=== PATIENT | male | born 1940 | race Caucasian/White ===

== ENCOUNTER 2017-04-18 11:45 | Inpatient (IN) | payer MEDICARE ==
[~2017-04-18] VITALS: Ht 175.3 cm; Wt 72.4 kg
[~2017-04-18 11:45] MED LIST: AMIO200 PO; ASPI81 PO; ATOR80TA41 PO; DOCU1CAP39 PO; DORZ1SOL2 EACH EYE; LISI-357 PO; LUMI0.01 EACH EYE; METO25 PO; OCUVTAB PO; PLAV75TA PO; WALKER ROLLING
[2017-04-18 11:49] VITALS: BP 191/98; PULSE 85; RESP 20; TEMP 97.7; O2SAT 97
[2017-04-18] MEDS ORDERED: SODIUM CHLOR 0.9% 1000 ML INJ 1,000 ML IV ONE (11:53)
[2017-04-18] MEDS ORDERED: HYDROmorphone HCL PF 1 MG/ML VIAL IVS ONE ×2 (12:00→15:00)
[2017-04-18] MEDS ORDERED: SODIUM CHLORIDE 0.9% FLUSH 10 ML FLUSH IVF PRN (12:00)
[2017-04-18] MEDS ORDERED: ONDANSETRON HCL 4 MG/2 ML VIAL IVP ONE (12:00)
[2017-04-18 12:04] VITALS: O2SAT 100
--- NOTE | 2017-04-18 12:08 | PD ---
HPI Chief Complaint: GI Complaint Time Seen by Provider: 11:53 Travel History International Travel<30 days: No Contact w/Intl Traveler<30days: No Traveled to known affect area: No History of Present Illness HPI 76-year-old male with history coronary artery disease, peripheral vascular disease, early onset diabetes, who presents today with complaints of nausea vomiting and dizziness. The patient states he started sprinting lower abdominal pain earlier today. He states that when he was in the shower he started feeling worse and then had associated vomiting. The patient has no previous history of abdominal issues. He denies any chest pains, chest pressure. There are no urinary symptoms. The patient states that he feels the urge to have a bowel movement however the pain is not allowing him to have one. PFSH Past Medical History Hx Anticoagulant Therapy: Yes (PLAVIX) Arthritis: Yes Heart Rhythm Problems: Yes (NEW ONSET SINUS BRADYCARDIA) Cancer: No Cardiovascular Problems: Yes (HTN, CABG, STENTS, ) High Cholesterol: Yes Chest Pain: No COPD: Yes Diabetes: No Endocrine: No Gastrointestinal Disorders: Yes (GERD) GERD: Yes Glaucoma: Yes Genitourinary: No Hepatitis: No Hiatal Hernia: No Hypertension: Yes Immune Disorder: No Kidney Stones: Yes (COUPLE OF TIMES) Musculoskeletal: Yes (ARTHRITIS) Neurologic: Yes (HX BRAIN ANEURYSM (COILED)) Psychiatric: No Reproductive: Yes Respiratory: Yes (COPD) Integumentary: No Thyroid Disease: No Past Surgical History Abdominal Surgery: Yes (RIGHT ING. HERNIA REP.) AICD: No Arteriovenous Shunt: No Body Medical Devices: BRAIN COIL; STENTS IN LEFT GROIN Eye Surgery: Yes (CATARACTS bilateral;LASER R EYE) Insulin Pump: No Joint Replacement: Yes (LEFT HIP) Neurologic Surgery: Yes (ANEURYSM-COIL PLACED) Pacemaker: No Thoracic Surgery: Yes (Bypass) Tonsillectomy: Yes Other Surgery: Yes (left hip replaced, hernia) Social History Alcohol Use: No Tobacco Use: No (former smoker. quit 25yrs ago.) Substance Use: No Allergies-Medications (Allergen,Severity, Reaction): Coded Allergies: Clam (Verified Allergy, Severe, throat swells, 04/18/17) Reported Meds & Prescriptions Reported Meds & Active Scripts Active Metoprolol Tartrate 25 mg (Metoprolol Tartrate) 25 Mg Tab 25 Mg PO BID Colace 100 Mg Cap (Docusate Sodium) 100 Mg Cap 100 Mg PO DAILY Aspirin Low Strength (Aspirin) 81 Mg Chw 81 Mg PO DAILY Cordarone 200 Mg Tab (Amiodarone HCl) 200 Mg Tab 200 Mg PO Q12HR Walker Rolling (Device) Device 1 Ea Reported Ocuvite (Vit A/Vit C/Vit E/Selen/Cu/Zn/Lutei) Tab 1 Tab PO DAILY Lipitor 80 Mg Tab (Atorvastatin) 80 Mg Tab 80 Mg PO DAILY Lisinopril 5 mg (Lisinopril) 5 Mg Tab 1 Tab PO BID Lumigan (Bimatoprost) 0.01 % Silke 1 Drop EACH EYE HS Cosopt (Dorzolamide/Timolol) 5 Ml Soln 1 Drop EACH EYE BID Plavix (Clopidogrel Bisulfate) 75 Mg Tab 75 Mg PO DAILY Review of Systems Except as stated in HPI: all other systems reviewed are Neg General / Constitutional: No: Fever, Chills HENT: No: Headaches, Lightheadedness Cardiovascular: No: Chest Pain or Discomfort, Palpitations Respiratory: No: Cough, Shortness of Breath Gastrointestinal: Positive: Nausea, Vomiting, Abdominal Pain (lower), No: Diarrhea Genitourinary: No: Dysuria, Decreased Urinary Output Musculoskeletal: No: Weakness, Pain Neurologic: Positive: Dizziness (with the vomiting), No: Weakness, Headache Physical Exam Narrative GENERAL: Well-nourished, well-developed patient. SKIN: Focused skin assessment warm/dry. HEAD: Normocephalic/atraumatic. EYES: No scleral icterus. No injection or drainage. NECK: Supple, trachea midline. CARDIOVASCULAR: Regular rate and rhythm without murmurs, gallops, or rubs. RESPIRATORY: Breath sounds equal bilaterally. No accessory muscle use. GASTROINTESTINAL: Abdomen soft, nondistended. He had subjective pain in his lower abdominal area. Worse on the left and on the right with voluntary guarding. No rebound. MUSCULOSKELETAL: No cyanosis, or edema. NEUROLOGICAL: Awake and alert. Cranial nerves II through XII intact. Motor grossly within normal limits. Five out of 5 muscle strength in all muscle groups. Normal speech. Data Data Last Documented VS Vital Signs Date Time Temp Pulse Resp B/P Pulse Ox O2 Delivery O2 Flow Rate FiO2 04/18/17 13:00 68 16 164/76 98 04/18/17 12:04 Room Air 04/18/17 11:49 97.7 Orders Complete Blood Count With Diff (04/18/17 11:53) Comprehensive Metabolic Panel (04/18/17 11:53) Urinalysis - C+S If Indicated (04/18/17 11:53) Lipase (04/18/17 11:53) Ct Abd/Pel W Iv Contrast(Rout) (04/18/17 ) Iv Access Insert/Monitor (04/18/17 11:53) Ecg Monitoring (04/18/17 11:53) Oximetry (04/18/17 11:53) Ondansetron Inj (Zofran Inj) (04/18/17 12:00) Sodium Chlor 0.9% 1000 Ml Inj (Ns 1000 M (04/18/17 11:53) Sodium Chloride 0.9% Flush (Ns Flush) (04/18/17 12:00) Hydromorphone Pf Inj (Dilaudid Pf Inj) (04/18/17 12:00) Ckmb (Isoenzyme) Profile (04/18/17 12:00) Troponin I (04/18/17 12:00) Iohexol 350 Inj (Omnipaque 350 Inj) (04/18/17 13:58) Levofloxacin 750 Mg Premix Inj (Levaquin (04/18/17 15:00) Metronidazole 500 Mg Inj (Flagyl 500 Mg (04/18/17 15:00) Hydromorphone Pf Inj (Dilaudid Pf Inj) (04/18/17 15:00) Labs Laboratory Tests Test 04/18/17 12:00 White Blood Count 19.3 TH/MM3 Red Blood Count 4.98 MIL/MM3 Hemoglobin 13.8 GM/DL Hematocrit 42.7 % Mean Corpuscular Volume 85.8 FL Mean Corpuscular Hemoglobin 27.8 PG Mean Corpuscular Hemoglobin 32.4 % Concent Red Cell Distribution Width 16.1 % Platelet Count 217 TH/MM3 Mean Platelet Volume 8.9 FL Neutrophils (%) (Auto) 85.4 % Lymphocytes (%) (Auto) 6.1 % Monocytes (%) (Auto) 7.2 % Eosinophils (%) (Auto) 1.1 % Basophils (%) (Auto) 0.2 % Neutrophils # (Auto) 16.5 TH/MM3 Lymphocytes # (Auto) 1.2 TH/MM3 Monocytes # (Auto) 1.4 TH/MM3 Eosinophils # (Auto) 0.2 TH/MM3 Basophils # (Auto) 0.0 TH/MM3 CBC Comment DIFF FINAL Differential Comment Sodium Level 143 MEQ/L Potassium Level 4.2 MEQ/L Chloride Level 108 MEQ/L Carbon Dioxide Level 25.4 MEQ/L Anion Gap 10 MEQ/L Blood Urea Nitrogen 19 MG/DL Creatinine 0.75 MG/DL Estimat Glomerular Filtration 101 ML/MIN Rate Random Glucose 147 MG/DL Calcium Level 9.0 MG/DL Total Bilirubin 0.8 MG/DL Aspartate Amino Transf 16 U/L (AST/SGOT) Alanine Aminotransferase 18 U/L (ALT/SGPT) Alkaline Phosphatase 81 U/L Total Creatine Kinase 57 U/L Troponin I LESS THAN 0.02 NG/ML Total Protein 7.5 GM/DL Albumin 3.7 GM/DL Lipase 137 U/L [facility] Medical Decision Making Medical Screen Exam Complete: Yes Emergency Medical Condition: Yes Interpretation(s) Last 24 hours Impressions Abdomen/Pelvis CT 04/18/17 0000 Signed Impressions: Service Date/Time: Tuesday, April 18, 2017 13:51 - CONCLUSION: There is fairly diffuse dilation of the mid jejunum and ileum. The terminal ileum is normal in caliber. The findings suggest a nonspecific enteritis due to the diffuse dilation and thickening of the bowel however There is somewhat of caliber change within the bowel in the right lower quadrant. Followup to ensure this does not represent an internal hernia would be warranted. The appendix is normal in appearance. There is free fluid and inflammatory change along mid ileum as well. No free air is identified. Alton Fuller MD Differential Diagnosis Diverticulitis versus appendicitis versus colitis versus ischemic bowel versus ACS Narrative Course 76-year-old male presents today with complaints of abdominal pain with nausea vomiting. The patient has a white count of 19,000. The CT scan of the and pelvis with oral and IV contrast reveals nonspecific enteritis. There is no evidence of intra-abdominal abscess. They're recommending a follow up scan to rule out a hernia as well. The patient held be given Levaquin and Flagyl. He' s been given I V fluids and 1 dose of IVD pain medicine and nausea medicine. He 'll be given a second dose of IV pain medicine. There is a call out to the hospitalist service for admission. Diagnosis Primary Impression: Enteritis Additional Impressions: Nausea & vomiting Leukocytosis Admitting Information Admitting Physician Requests: Admit Simba Gray MD Apr 18, 2017 12:08
[2017-04-18 12:22] LABS: AUTOMATED NEUTROPHIL # 16.5 TH/MM3 (1.8-7.7); BASOPHIL % 0.2 % (0.0-2.0); EOSINOPHIL # 0.2 TH/MM3 (0-0.4); EOSINOPHIL % 1.1 % (0.0-4.0); HEMATOCRIT 42.7 % (39.0-51.0); HEMO FLAGS DIFF FINAL; LYMPH % 6.1 % (9.0-44.0); LYMPHOCYTE # 1.2 TH/MM3 (1.0-4.8); MEAN CELL VOLUME 85.8 FL (80.0-100.0); MEAN CORPUSCULAR HEMOGLOBIN 27.8 PG (27.0-34.0); MEAN CORPUSCULAR HGB CONC 32.4 % (32.0-36.0); MONO % 7.2 % (0.0-8.0); NEUT % 85.4 % (16.0-70.0); PLATELET COUNT 217 TH/MM3 (150-450); RED BLOOD COUNT 4.98 MIL/MM3 (4.50-5.90); RED CELL DISTRIBUTION WIDTH 16.1 % (11.6-17.2); WHITE BLOOD COUNT 19.3 TH/MM3 (4.0-11.0)
[2017-04-18 13:00] VITALS: BP 164/76; PULSE 68; RESP 16; O2SAT 98
[2017-04-18 13:05] LABS: ALT (GPT) 18 U/L (12-78); ANION GAP 10 MEQ/L (5-15); AST (GOT) 16 U/L (15-37); BICARBONATE 25.4 MEQ/L (21.0-32.0); BLOOD UREA NITROGEN 19 MG/DL (7-18); CHLORIDE 108 MEQ/L (98-107); GLOMERULAR FILTRATION RATE 101 ML/MIN (>89); POTASSIUM 4.2 MEQ/L (3.5-5.1); SODIUM (NA) 143 MEQ/L (136-145)
[2017-04-18 13:07] LABS: ALKALINE PHOSPHATASE 81 U/L (45-117); TOTAL BILIRUBIN ADULT 0.8 MG/DL (0.2-1.0)
[2017-04-18 13:24] LABS: CREATINE KINASE 57 U/L (39-308)
[2017-04-18] MEDS ORDERED: IOHEXOL 350 MG/ML 10 ML VIAL (for RAD DIAG) IV ONE (13:58)
--- NOTE | 2017-04-18 14:24 | RADRPT ---
EXAM DATE/TIME: 04/18/2017 13:51 [facility] COMPARISON: CT PULMONARY ANGIOGRAM, December 24, 2014, 12:00. INDICATIONS : Nausea,vomiting. IV CONTRAST: 95 cc Omnipaque 350 (iohexol) IV ORAL CONTRAST: No oral contrast ingested. RADIATION DOSE: 9.6 CTDIvol (mGy) MEDICAL HISTORY : Cardiovascular disease. Hypertension. Chronic obstructive pulmonary disease. SURGICAL HISTORY : CABG Coronary artery stent. ENCOUNTER: Initial ACUITY: 1 day PAIN SCALE: 5/10 LOCATION: Abdomen TECHNIQUE: Volumetric scanning of the abdomen and pelvis was performed. Using automated exposure control and ad justment of the mA and/or kV according to patient size, radiation dose was kept as low as reasonably achievable to obtain optimal diagnostic quality images. DICOM format image data is available electro nically for review and comparison. FINDINGS: Imaging through the lung bases demonstrates advanced interstitial fibrotic change and COPD. Examination of the liver demonstrates a 2.6 cm cyst arising from the left lobe. The liver is otherwis e unremarkable in appearance. The spleen, pancreas and adrenal glands are normal in appearance. They're simple cysts within the kid neys bilaterally. The largest is on the left and measures 3.3 cm. The examination also demonstrates a 7 mm stone in the lower pole collecting system on the left. There is advanced atherosclerotic plaquing of the abdominal aorta. No retroperitoneal adenopathy is s een. The visualized loops of small and large bowel demonstrate diffusely thickened, inflamed appearing mid jejunum and ileum. There is a caliber change with a fairly normal appearing terminal ileum in the ri ght lower quadrant. There is a small amount of fluid within the abdomen. There is still gas and stool within the colon. The visualized bony structures demonstrate degenerative changes but are otherwise intact. CONCLUSION: There is fairly diffuse dilation of the mid jejunum and ileum. The terminal ileum is normal in calibe r. The findings suggest a nonspecific enteritis due to the diffuse dilation and thickening of the bow el however There is somewhat of caliber change within the bowel in the right lower quadrant. Followup to ensure this does not represent an internal hernia would be warranted. The appendix is normal in a ppearance. There is free fluid and inflammatory change along mid ileum as well. No free air is identi fied. Alton Fuller MD on April 18, 2017 at 14:15 Board Certified Radiologist. This report was verified electronically.
[2017-04-18] MEDS ORDERED: metroNIDAZOLE 500 MG INJ 100 ML IV ONE (15:00)
[2017-04-18] MEDS ORDERED: LEVOFLOXACIN 750 MG PREMIX INJ 150 ML IV ONE (15:00)
[2017-04-18] MEDS ORDERED: ATOR1TAB18 PO (15:04)
[2017-04-18] MEDS ORDERED: COLA100C PO (15:04)
[2017-04-18] MEDS ORDERED: LISI-519 PO (15:04)
[2017-04-18] MEDS ORDERED: PLAV75TA29 PO (15:04)
[2017-04-18] MEDS ORDERED: OCUVTAB PO (15:04)
[2017-04-18] MEDS ORDERED: ASPI81CH3 CHEW (15:04)
[2017-04-18] MEDS: SODIUM CHLOR 0.9% 1000 ML INJ 1,000 ML IV SCH ×2 (15:05→20:51)
[2017-04-18] MEDS ORDERED: DORZ1SOL2 EACH EYE (15:06)
[2017-04-18] MEDS ORDERED: LUMI0.01 EACH EYE (15:06)
[2017-04-18] MEDS ORDERED: PROCHLORPERAZINE INJ 10 MG/2 ML VIAL IV PUSH ONE (15:15)
[2017-04-18 16:04] VITALS: BP 127/61; PULSE 67; RESP 18; O2SAT 95
[2017-04-18] MEDS ORDERED: HYDROmorphone HCL PF 1 MG/ML VIAL IV PUSH PRN (16:15)
[2017-04-18] MEDS ORDERED: ONDANSETRON HCL 4 MG/2 ML VIAL IV PUSH PRN (16:15)
--- NOTE | 2017-04-18 16:29 | HHI.HP ---
[facility] Berto Paz MD Admission Diagnosis Enteritis, leukocytosis, intractable nausea vomiting. Diagnoses: Chief Complaint: Her abdominal pain, vomiting Travel History International Travel<30 Days: No Contact w/Intl Traveler <30 Da: No Traveled to Known Affected Are: No History of Present Illness Patient is a very pleasant 76-year-old male with known history of CAD status post CABG, hypertension, who this morning workup woke up and started complaining of lower abdominal pain associated with nausea and vomiting persistent vomited 3-4 times previously ingested orange juice and later dry heaves with some diffuse vomitus. No diarrhea. Patient was unable to hold down any food at all. This was associated with chilling sensation: Sweats and fever by touch With increasing abdominal pain prompted to bring him in here and was admitted for evaluation. Patient denies any diarrhea. Last bowel movement was last evening formed stools no melena or hematochezia. Patient feels very dry and thirsty. He denies any urinary symptoms incontinence burning or dysuria. On evaluation with a white count of 19,[address] off inflamed small intestinal stains. Patient now admitted for further evaluation and management. Patient denies any family members with the same problem. States had a colonoscopy done within the past 5 years which was reportedly normal. Denies any weight loss. Patient with healthy lifestyle, goes to the gym 3 times a week Patient now feels thirsty willing to try food. Has not had anyflatus or BM since admission though Clinically feeling better Review of Systems Constitutional: DENIES: Fever, Weight loss, Chills, Change in appetite Eyes: DENIES: Blurred vision, Double Vision Ears, nose, mouth, throat: DENIES: Tinnitus, Ear Pain, Epistaxis, Odynophagia Respiratory: DENIES: Cough, Hemoptysis, Sputum production, Shortness of breath Cardiovascular: DENIES: Chest pain, Palpitations, Dyspnea on Exertion, Lower Extremity Edema, Orthopnea Gastrointestinal: DENIES: Black stools, Bloody stools, Difficulty Swallowing, Anorexia Genitourinary: DENIES: Urgency, Hematuria, Penile Discharge Musculoskeletal: DENIES: Joint pain, Stiffness Integumentary: DENIES: Pruritus Hematologic/lymphatic: DENIES: Bruising Immunologic/allergic: DENIES: Urticaria Neurologic: DENIES: Headache, Speech Problems, Tremor Psychiatric: DENIES: Suicidal Ideation, Homicidal Ideation Past Family Social History Past Medical History CAD status post CABG Hypertension Hyperlipidemia History of peripheral vascular disease with stents placed. On both lower extremities. Past Surgical History CABG in 2016 Left hip surgery in 2014 Stents placed on both lower extremity for peripheral vascular disease History of brain aneurysm 10 years ago status post coiling Allergies: Coded Allergies: Clam (Verified Allergy, Severe, throat swells, 04/18/17) Family History Noncontributory Social History History of smoking quit 25 years ago Very rare alcohol use No history of substance abuse Physical Exam Vital Signs Vital Signs Date Time Temp Pulse Resp B/P Pulse Ox O2 Delivery O2 Flow Rate FiO2 04/18/17 16:04 67 18 127/61 95 Room Air 04/18/17 13:00 68 16 164/76 98 04/18/17 12:04 100 Room Air 04/18/17 11:57 20 04/18/17 11:49 97.7 85 20 191/98 97 Physical Exam GENERAL: in no apparent distress. Very dry oral mucosa generalized weakness SKIN: No rashes, ecchymoses or lesions. Cool and dry. HEAD: Atraumatic. Normocephalic. No temporal or scalp tenderness. EYES: Pupils equal round and reactive. Extraocular motions intact. No scleral icterus. No injection or drainage. ENT: Nose without bleeding, purulent drainage or septal hematoma. Throat without erythema, tonsillar hypertrophy or exudate. Uvula midline. Airway patent. NECK: Trachea midline. No JVD or lymphadenopathy. Supple, nontender, no meningeal signs. CARDIOVASCULAR: Regular rate and rhythm . 3/6 systolic murmur left sternal border gallops, or rubs. RESPIRATORY: Clear to auscultation. Breath sounds equal bilaterally. No wheezes , rales, or rhonchi. GASTROINTESTINAL: Abdomen soft, non-tender, nondistended. No guarding. Or tenderness or rebound on exam. (Patient just received IV pain meds) MUSCULOSKELETAL: Extremities without clubbing, cyanosis, or edema. No joint tenderness, effusion, or edema noted. No calf tenderness. Negative Homans sign bilaterally. NEUROLOGICAL: Awake and alert. Cranial nerves II through XII intact. Motor and sensory grossly within normal limits. Five out of 5 muscle strength in all muscle groups. Normal speech. Laboratory Laboratory Tests Test 04/18/17 12:00 White Blood Count 19.3 Red Blood Count 4.98 Hemoglobin 13.8 Hematocrit 42.7 Mean Corpuscular Volume 85.8 Mean Corpuscular Hemoglobin 27.8 Mean Corpuscular Hemoglobin 32.4 Concent Red Cell Distribution Width 16.1 Platelet Count 217 Mean Platelet Volume 8.9 Neutrophils (%) (Auto) 85.4 Lymphocytes (%) (Auto) 6.1 Monocytes (%) (Auto) 7.2 Eosinophils (%) (Auto) 1.1 Basophils (%) (Auto) 0.2 Neutrophils # (Auto) 16.5 Lymphocytes # (Auto) 1.2 Monocytes # (Auto) 1.4 Eosinophils # (Auto) 0.2 Basophils # (Auto) 0.0 CBC Comment DIFF FINAL Differential Comment Sodium Level 143 Potassium Level 4.2 Chloride Level 108 Carbon Dioxide Level 25.4 Anion Gap 10 Blood Urea Nitrogen 19 Creatinine 0.75 Estimat Glomerular Filtration 101 Rate Random Glucose 147 Calcium Level 9.0 Total Bilirubin 0.8 Aspartate Amino Transf 16 (AST/SGOT) Alanine Aminotransferase 18 (ALT/SGPT) Alkaline Phosphatase 81 Total Creatine Kinase 57 Troponin I LESS THAN 0.02 Total Protein 7.5 Albumin 3.7 Lipase 137 Result Diagram: 04/18/17 1200 04/18/17 1200 Imaging Last Impressions Abdomen/Pelvis CT 04/18/17 0000 Signed Impressions: Service Date/Time: Tuesday, April 18, 2017 13:51 - CONCLUSION: There is fairly diffuse dilation of the mid jejunum and ileum. The terminal ileum is normal in caliber. The findings suggest a nonspecific enteritis due to the diffuse dilation and thickening of the bowel however There is somewhat of caliber change within the bowel in the right lower quadrant. Followup to ensure this does not represent an internal hernia would be warranted. The appendix is normal in appearance. There is free fluid and inflammatory change along mid ileum as well. No free air is identified. Alton Fuller MD Assessment and Plan Assessment and Plan 76-year-old male presenting with persistent nausea or vomiting. Possible small bowel obstruction versus starting enteritis or food poisoning. Patient clinically dehydrated Start patient on IV fluids 125 cc an hour Follow renal functions and electrolytes Zofran when necessary for nausea IV Dilaudid when necessary in ferritin small doses for severe abdominal pain Monitor abdominal exam closely Get follow-up abdominal films in a.m.if persistent vomiting History of hypertension, CABG Continue lisinopril aspirin a pravastatin Plavix History of glaucoma continue eyedrops PPI for GI prophylaxis Bilateral teds SCDs for DVT prophylaxis Physician Certification Order for Inpatient Services The services are ordered in accordance with Medicare regulations or non- Medicare payer requirements, as applicable. In the case of services not specified as inpatient-only, they are appropriately provided as inpatient services in accordance with the 2-midnight benchmark. days is the estimated time the patient will need to remain in the hospital, assuming treatment plan goals are met and no additional complications. Carin Menchaca MD Apr 18, 2017 16:29
[2017-04-18 17:00] VITALS: BP 120/59; PULSE 77; RESP 18; O2SAT 97
[2017-04-18 17:21] LABS: BLOOD, URINE NEG (NEG); COMMENT (UR) CULT NOT INDICATED; CULTURE IF INDICATED CULT NOT INDICATED; GLUCOSE,URINE NEG (NEG); KETONE, URINE TRACE mg/dL (NEG); MUCUS URINE FEW /lpf (OCC); NITRITE,URINE NEG (NEG); SQUAMOUS EPITHELIAL CELL URINE <1 /hpf (0-5); URINE COLOR YELLOW (YELLW/STRAW)
[2017-04-18 20:00] VITALS: BP 135/67; PULSE 80; RESP 18; TEMP 97.7; O2SAT 94
[2017-04-18] MEDS: metroNIDAZOLE 500 MG INJ 100 ML IV SCH (20:51)
[2017-04-18] MEDS: LISINOPRIL 5 MG TAB PO SCH (20:51)
[2017-04-18] MEDS ORDERED: ATORVASTATIN 80 MG TAB PO SCH (21:00)
[2017-04-18] MEDS ORDERED: LATANOPROST 0.005% OPHT SOLN 2.5 ML BTL EACH EYE SCH (21:00)
[2017-04-18] MEDS: DORZOLAMIDE/TIMOLOL OPTH SOLN 10 ML BTL EACH EYE SCH (22:47)
[2017-04-19] VITALS: BP 138/67; PULSE 63; RESP 18; TEMP 97.3; O2SAT 96
[2017-04-19] MEDS: SODIUM CHLOR 0.9% 1000 ML INJ 1,000 ML IV SCH (04:03)
[2017-04-19] MEDS: metroNIDAZOLE 500 MG INJ 100 ML IV SCH ×2 (04:04→09:35)
[2017-04-19 08:00] VITALS: BP 161/70; PULSE 70; RESP 18; TEMP 95.6; O2SAT 96
[2017-04-19 08:44] LABS: AUTOMATED NEUTROPHIL # 7.2 TH/MM3 (1.8-7.7); BASOPHIL % 0.2 % (0.0-2.0); EOSINOPHIL # 0.2 TH/MM3 (0-0.4); EOSINOPHIL % 2.4 % (0.0-4.0); HEMO FLAGS DIFF FINAL; LYMPH % 15.7 % (9.0-44.0); LYMPHOCYTE # 1.5 TH/MM3 (1.0-4.8); MEAN CORPUSCULAR HEMOGLOBIN 28.5 PG (27.0-34.0); MEAN CORPUSCULAR HGB CONC 33.2 % (32.0-36.0); MONO % 6.9 % (0.0-8.0); NEUT % 74.8 % (16.0-70.0); PLATELET COUNT 180 TH/MM3 (150-450); RED BLOOD COUNT 4.06 MIL/MM3 (4.50-5.90); WHITE BLOOD COUNT 9.6 TH/MM3 (4.0-11.0)
[2017-04-19 08:56] LABS: BICARBONATE 25.6 MEQ/L (21.0-32.0); POTASSIUM 3.6 MEQ/L (3.5-5.1)
[2017-04-19] MEDS ORDERED: CLOPIDOGREL 75 MG TAB PO SCH (09:00)
[2017-04-19] MEDS ORDERED: ASPIRIN 81 MG CHEW TAB CHEW SCH (09:00)
--- NOTE | 2017-04-19 09:17 | HHI.PR ---
Subjective Remarks passing out lots of flatus no diarrhea no nausea or vomiting wanting to eat- "starving" Objective Vitals Vital Signs Date Time Temp Pulse Resp B/P Pulse Ox O2 Delivery O2 Flow Rate FiO2 04/19/17 08:00 95.6 70 18 161/70 96 04/19/17 00:00 97.3 63 18 138/67 96 04/18/17 20:00 97.7 80 18 135/67 94 04/18/17 17:00 77 18 120/59 97 Room Air 04/18/17 16:04 67 18 127/61 95 Room Air 04/18/17 13:00 68 16 164/76 98 04/18/17 12:04 100 Room Air 04/18/17 11:57 20 04/18/17 11:49 97.7 85 20 191/98 97 I/O 04/18/17 04/18/17 04/18/17 04/19/17 04/19/17 04/19/17 06:59 14:59 22:59 06:59 14:59 22:59 Intake Total 360 ml 997 ml Output Total 0 ml 350 ml Balance 360 ml 647 ml Intake Oral 360 ml 120 ml IV Total 877 ml Output Urine Total 0 ml 350 ml Result Diagram: 04/19/17 0800 04/19/17 0800 Imaging Last Impressions Abdomen/Pelvis CT 04/18/17 0000 Signed Impressions: Service Date/Time: Tuesday, April 18, 2017 13:51 - CONCLUSION: There is fairly diffuse dilation of the mid jejunum and ileum. The terminal ileum is normal in caliber. The findings suggest a nonspecific enteritis due to the diffuse dilation and thickening of the bowel however There is somewhat of caliber change within the bowel in the right lower quadrant. Followup to ensure this does not represent an internal hernia would be warranted. The appendix is normal in appearance. There is free fluid and inflammatory change along mid ileum as well. No free air is identified. Alton Fuller MD Objective Remarks awake and alert, NAD anicteric lungs- no rales or wheezes regularr hythm abdomen- soft, no guarding or tenderness, good bowel sounds, extremities no edema neuro exam non focal A/P Assessment and Plan 76-year-old male presenting with persistent nausea or vomiting. Acute nausea and vomiting - Possible small bowel obstruction- resolved IMproved symtoms advance diet Follow renal functions and electrolytes patient states ready to eat History of hypertension, CABG Continue lisinopril aspirin a pravastatin Plavix History of glaucoma continue eyedrops PPI for GI prophylaxis Bilateral teds SCDs for DVT prophylaxis If tolerated po- DC home later today tolerated po very well DC home today REgular heart healthy diet COntinue home meds Return to ER if develops fever or vomiting recurs Carin Menchaca MD Apr 19, 2017 09:17
[2017-04-19] MEDS: DORZOLAMIDE/TIMOLOL OPTH SOLN 10 ML BTL EACH EYE SCH (09:32)
[2017-04-19] MEDS: LISINOPRIL 5 MG TAB PO SCH (09:33)
--- NOTE | 2017-04-19 09:55 | EKG ---
Date Performed: 04/18/2017 Time Performed: 11:52:23 PTAGE: 76 years EKG: Sinus rhythm WITH MARKED SINUS ARRHYTHMIA POSSIBLE LEFT ATRIAL ENLARGEMENT MARKED LEFT AXIS DEVIATION ANTEROSEPTA L MYOCARDIAL INFARCTION MODERATE T-WAVE ABNORMALITY, CONSIDER LATERAL ISCHEMIA ABNORMAL ECG Compared to prior tracing no significant change PREVIOUS TRACING : 05/25/2016 04.38 DOCTOR: Michael Thakur Interpretating Date/Time 04/19/2017 09:50:30
[2017-04-19 12:20] VITALS: BP 172/77; PULSE 60; RESP 18; TEMP 96.1; O2SAT 97
[2017-04-19] MEDS ORDERED: LEVOFLOXACIN 750 MG PREMIX INJ 150 ML IV SCH (15:00)
== END 2017-04-19 14:07 | disposition home or self-care (01) | DRG 392 ==
LOC: NEPE 11:45 → NEDA 15:08 → N07B 18:35
PROVIDERS: ADMIT Internal Medicine; ATTEND Internal Medicine
DX: K52.9 Noninfective gastroenteritis and colitis, unspecified (principal); E11.51 Type 2 diabetes mellitus with diabetic peripheral angiopathy without gangrene; J44.9 Chronic obstructive pulmonary disease, unspecified; I25.10 Atherosclerotic heart disease of native coronary artery without angina pectoris; E78.5 Hyperlipidemia, unspecified; M19.90 Unspecified osteoarthritis, unspecified site; I10 Essential (primary) hypertension; H40.9 Unspecified glaucoma; E86.0 Dehydration; K21.9 Gastro-esophageal reflux disease without esophagitis; Z96.642 Presence of left artificial hip joint; Z95.1 Presence of aortocoronary bypass graft; Z79.01 Long term (current) use of anticoagulants; Z87.891 Personal history of nicotine dependence; Z79.82 Long term (current) use of aspirin; Z95.820 Peripheral vascular angioplasty status with implants and grafts
CPT/HCPCS: 74177; 80048; 80053; 81001; 82550; 83690; 84484; 85025; 93005; 96361; 96374; 96375; 96376; J0780; J1170; J1956; J2405; J7030; Q9967

== ENCOUNTER 2018-01-07 15:56 | Emergency (ER) | payer MEDICARE ==
[~2018-01-07] VITALS: Ht 177.8 cm; Wt 75.4 kg
[~2018-01-07 15:56] MED LIST changes: -AMIO200 PO; +ASPI1CHW4 CHEW; -ASPI81 PO; -ATOR80TA41 PO; +ATOR80TA45 PO; -DOCU1CAP39 PO; -LISI-357 PO; +LISI-519 PO; -METO25 PO; -PLAV75TA PO; +PLAV75TA29 PO; -WALKER ROLLING
[2018-01-07 16:09] VITALS: BP 198/88; PULSE 62; RESP 16; TEMP 97.8; O2SAT 94
[2018-01-07] MEDS ORDERED: TIMO0.5S30 EACH EYE (17:46)
--- NOTE | 2018-01-07 18:00 | PD ---
HPI Chief Complaint: Musculoskeletal Complaint Time Seen by Provider: 17:56 Travel History International Travel<30 days: No Contact w/Intl Traveler<30days: No Traveled to known affect area: No History of Present Illness HPI Patient presents with concerns of ecchymosis in his right distal dorsal foot first and second. States when he put on his socks and shoes on this morning there was no discoloration. States he played golf without any specific trauma or misstep. Attended a without complication. When he took his shoes and socks off this evening there was ecchymosis in his left foot. Patient is on Plavix and aspirin for coronary artery disease. He is a diabetic. Able to bear weight. PFSH Past Medical History Hx Anticoagulant Therapy: Yes Arthritis: Yes Heart Rhythm Problems: Yes (irregular heartbeat- sinus bradycardia) Cancer: No Cardiovascular Problems: Yes (htn onm meds, bypass 2 vessels) High Cholesterol: Yes Chemotherapy: No Chest Pain: No COPD: Yes Diabetes: No Diminished Hearing: No Endocrine: No Gastrointestinal Disorders: Yes (GERD) GERD: Yes (gerd) Glaucoma: Yes Genitourinary: Yes Hepatitis: No Hiatal Hernia: No Hypertension: Yes Immune Disorder: No Implanted Vascular Access Dvce: Yes Kidney Stones: Yes Medical other: No Musculoskeletal: Yes Neurologic: Yes (brain aneurysm 10yrs ago) Psychiatric: No Reproductive: No Respiratory: Yes Integumentary: No Radiation Therapy: No Thyroid Disease: No Tetanus Vaccination: Unknown Past Surgical History Abdominal Surgery: Yes (right inguinal hernia repair) AICD: No Arteriovenous Shunt: No Body Medical Devices: BRAIN COIL; STENTS IN LEFT GROIN Cardiac Surgery: Yes (bypass, leroy lower extrem. stents for pvd, cabg) Ear Surgery: No Endocrine Surgery: Yes (tonsillectomy) Eye Surgery: Yes (cataracts surgery leroy. eyes, right eye laser) Genitourinary Surgery: No Gynecologic Surgery: No Insulin Pump: No Joint Replacement: Yes (left hip) Neurologic Surgery: Yes (ANEURYSM-COIL PLACED) Pacemaker: No Thoracic Surgery: No Tonsillectomy: Yes Other Surgery: Yes (left hip replaced, hernia) Social History Alcohol Use: No Tobacco Use: No (former smoker. quit 25yrs ago.) Substance Use: No Allergies-Medications (Allergen,Severity, Reaction): Coded Allergies: clams (Unverified Allergy, Severe, throat swells, 01/07/18) Reported Meds & Prescriptions Reported Meds & Active Scripts Active Reported Timolol Opth Drops 0.5 % Soln 1 Drop EACH EYE BID Cosopt Opth Drops (Dorzolamide-Timolol Opth Drops) 22.3-6.8 Mg/Ml Soln 1 Drop EACH EYE BID Lumigan Opth Drops (Bimatoprost) 0.01% Soln 1 Drop EACH EYE HS Aspirin 81 Low Dose (Aspirin) 81 Mg Chew 81 Mg CHEW DAILY Atorvastatin (Atorvastatin Calcium) 80 Mg Tab 80 Mg PO HS Plavix (Clopidogrel Bisulfate) 75 Mg Tab 75 Mg PO DAILY Lisinopril 5 Mg Tab 5 Mg PO BID Ocuvite (Multiple Vitamins W/ Minerals) 1 Tab 1 Tab PO DAILY Review of Systems General / Constitutional: No: Fever Eyes: No: Visual changes HENT: No: Headaches Cardiovascular: No: Chest Pain or Discomfort Respiratory: No: Shortness of Breath Gastrointestinal: No: Abdominal Pain Genitourinary: No: Dysuria Musculoskeletal: No: Pain Skin: No Rash Neurologic: No: Weakness Psychiatric: No: Depression Endocrine: No: Polydipsia Hematologic/Lymphatic: No: Easy Bruising Physical Exam Narrative GENERAL: Well-nourished, well-developed patient. SKIN: Focused skin assessment warm/dry. HEAD: Normocephalic. EYES: No scleral icterus. No injection or drainage. NECK: Supple, trachea midline. No JVD or lymphadenopathy. CARDIOVASCULAR: Regular rate and rhythm without murmurs, gallops, or rubs. RESPIRATORY: Breath sounds equal bilaterally. No accessory muscle use. GASTROINTESTINAL: Abdomen soft, non-tender, nondistended. MUSCULOSKELETAL: No cyanosis, or edema. BACK: Nontender without obvious deformity. No CVA tenderness. Examination of the right dorsal distal foot at the base of the first and second toes including the toes reveals ecchymosis without bony deformity, dorsal pedis pulses palpated Data Data Last Documented VS Vital Signs Date Time Temp Pulse Resp B/P (MAP) Pulse Ox O2 Delivery O2 Flow Rate FiO2 01/07/18 16:09 97.8 62 16 198/88 (124) 94 Orders Orders Foot, Limited (2vws) (01/07/18 ) Splint Or Brace Apply/Monitor (01/07/18 18:28) MDM Medical Decision Making Medical Screen Exam Complete: Yes Emergency Medical Condition: Yes Differential Diagnosis Ecchymosis, metatarsal fracture, contusion Narrative Course Assessment and plan discussed with patient at bedside. The bone density is diminished. Vascular calcifications are seen. Tiny plantar calcaneal spur. A nondisplaced fracture is seen through the first proximal phalanx. Diagnosis Primary Impression: Phalanx fracture, foot Qualified Codes: S92.414A - Nondisplaced fracture of proximal phalanx of right great toe, initial encounter for closed fracture Patient Instructions: General Instructions Additional Instructions: Tylenol for pain, ice and elevation, postop boot for comfort, follow-up with PCP , return to ER with any onset of new symptoms. Med/Other Pt SpecificInfo: No Meds Exist/No RX given Disposition: 01 DISCHARGE HOME Condition: Good Rodrick Baeza MD Jan 07, 2018 18:00
--- NOTE | 2018-01-07 18:22 | RADRPT ---
EXAM DATE/TIME: 01/07/2018 18:02 [facility] COMPARISON: No previous studies available for comparison. INDICATIONS : Trauma to foot. MEDICAL HISTORY : Cardiovascular disease. Hypertension. Chronic obstructive pulmonary disease. SURGICAL HISTORY : CABG Coronary artery stent. ENCOUNTER: Initial ACUITY: 1 day PAIN SCORE: 0/10 LOCATION: Right foot, great toe. FINDINGS: The bone density is diminished. Vascular calcifications are seen. Tiny plantar calcaneal spur. A nond isplaced fracture is seen through the first proximal phalanx. CONCLUSION: First proximal phalanx fracture. David Brown MD on January 07, 2018 at 18:19 Board Certified Radiologist. This report was verified electronically.
== END 2018-01-07 18:41 | disposition home or self-care (01) ==
LOC: PHED 15:56
DX: S92.414A Nondisplaced fracture of proximal phalanx of right great toe, initial encounter for closed fracture (principal); M77.31 Calcaneal spur, right foot; I25.10 Atherosclerotic heart disease of native coronary artery without angina pectoris; E11.9 Type 2 diabetes mellitus without complications; M19.90 Unspecified osteoarthritis, unspecified site; I10 Essential (primary) hypertension; J44.9 Chronic obstructive pulmonary disease, unspecified; K21.9 Gastro-esophageal reflux disease without esophagitis; X58.XXXA Exposure to other specified factors, initial encounter
CPT/HCPCS: 73620; 99283; L3260